=== PATIENT | female | born 2000 | race Caucasian/White ===

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

== ENCOUNTER 2022-05-06 00:27 | Emergency (ER) | payer OTHER ==
[~2022-05-06] VITALS: Ht 170.2 cm; Wt 99.8 kg
[2022-05-06] MEDS ORDERED: CEPH500C20 PO (02:13)
[2022-05-06 02:15] VITALS: BP 116/65; TEMP 98
== END 2022-05-06 02:20 | disposition home or self-care (01) ==
LOC: ED 00:27
PROC: 0HCBXZZ Extirpation of Matter from Right Upper Arm Skin, External Approach (ICD-10-PCS; principal; 2022-05-06)
DX: S40.851A Superficial foreign body of right upper arm, initial encounter (principal); W01.118A Fall on same level from slipping, tripping and stumbling with subsequent striking against other sharp object, initial encounter; W45.8XXA Other foreign body or object entering through skin, initial encounter; Y92.89 Other specified places as the place of occurrence of the external cause
CPT/HCPCS: 90471; 90715; 99283

== ENCOUNTER 2022-05-18 15:09 | Emergency (ER) | payer OTHER ==
[~2022-05-18] VITALS: Ht 170.2 cm; Wt 99.8 kg
[~2022-05-18 15:09] MED LIST: CEPH500C20 PO
[2022-05-18 15:23] VITALS: BP 122/55; TEMP 97.5
== END 2022-05-18 16:10 | disposition home or self-care (01) ==
LOC: ED 15:09
DX: Z48.02 Encounter for removal of sutures (principal)

== ENCOUNTER 2022-07-21 17:16 | Emergency (ER) | payer OTHER ==
[~2022-07-21] VITALS: Ht 170.2 cm; Wt 99.8 kg
[2022-07-21 18:39] LABS: PLATELET COUNT 248 K/uL (152-353)
[2022-07-21 18:58] LABS: POTASSIUM 3.3 mmol/L (3.6-5.2)
[2022-07-21 20:19] VITALS: BP 123/72; TEMP 98.4
== END 2022-07-21 20:20 | disposition home or self-care (01) ==
LOC: ED 17:16
PROVIDERS: Emergency Medicine
DX: K52.89 Other specified noninfective gastroenteritis and colitis (principal); R51.9 Headache, unspecified
CPT/HCPCS: 80053; 81002; 81025; 85027; 96360; 96374; 96375; 99284; J1885; J2405

== ENCOUNTER 2022-11-08 09:31 | Emergency (ER) | payer OTHER ==
[~2022-11-08] VITALS: Ht 170.2 cm; Wt 104.3 kg
[2022-11-08 09:40] VITALS: BP 142/93; TEMP 99.2
== END 2022-11-08 11:11 | disposition home or self-care (01) ==
LOC: ED 09:31
DX: O23.40 Unspecified infection of urinary tract in pregnancy, unspecified trimester (principal); N39.0 Urinary tract infection, site not specified
CPT/HCPCS: 81000; 81025; 87086; 87088; 99283